=== PATIENT | female | born 1990 | race American Indian/Alaskan Native ===

== ENCOUNTER 2018-02-10 08:48 | Emergency (ER) | payer MEDICAID ==
[2018-02-10 09:16] VITALS: BP 120/74
--- NOTE | 2018-02-10 09:51 | Emergency Department Report ---
Blank Doc - Documentation Documentation: Patient is a 27-year-old [place] female who is presenting with vaginal bleeding. Patient states that she is approximately 2-1/2 months . Patient states that this morning she started having some vaginal bleeding that is heavier than spotting however it is less than large clots. Patient states that there is some crampy lower abdominal pain that is 3 out of 10 in severity. Patient denies any dysuria vaginal discharge nausea vomiting fever at this time. Patient has not had ultrasound or care thus far. Patient will have a beta Quant ultrasound and ABO Rh performed here in the emergency department.
--- NOTE | 2018-02-10 11:56 | Ultrasound Report ---
Pelvic and transvaginal sonography: History: with vaginal bleeding. Findings: Uterus measures 9.9 x 6.2 x 7 cm. Single intrauterine gestation is noted. CRL of the fetus is 13.3 mm corresponding to 9 weeks and 6 days of gestation. heart rate 166 per minute. Right ovary 3.4 x 1.8 x 3.3 cm. No mass. Left ovary not visualized. Impression: Single viable intrauterine gestation.
--- NOTE | 2018-02-10 12:28 | Emergency Department Report ---
ED HPI - General Chief complaint: Vaginal Bleeding Stated complaint: VAGINAL BLEEDING/ Time Seen by Provider: 02/10/18 09:40 Source: patient Mode of arrival: Ambulatory Limitations: No Limitations - Related Data Previous Rx's Medication Instructions Recorded Last Taken Type Amoxicillin [Amoxicillin TAB] 875 mg PO BID #14 tablet 12/30/15 Unknown Rx Fluticasone [Flonase] 1 spray NS QDAY #1 bottle 12/30/15 Unknown Rx predniSONE [Deltasone] 50 mg PO QDAY #5 tab 12/30/15 Unknown Rx Vit No.130/Iron/Folic 1 each PO QDAY #30 tablet 02/10/18 Unknown Rx [ Tablet] Allergies Allergy/AdvReac Type Severity Reaction Status Date / Time No Known Allergies Allergy Unverified 12/30/15 10:30 ED Review of Systems ROS: Stated complaint: VAGINAL BLEEDING/ Other details as noted in HPI ED Past Medical Hx - Past Medical History Previous Medical History?: No - Surgical History Past Surgical History?: No - Social History Smoking Status: Never Smoker Substance Use Type: None - Medications Home Medications: Home Medications Medication Instructions Recorded Confirmed Last Taken Type Amoxicillin [Amoxicillin TAB] 875 mg PO BID #14 tablet 12/30/15 Unknown Rx Fluticasone [Flonase] 1 spray NS QDAY #1 bottle 12/30/15 Unknown Rx predniSONE [Deltasone] 50 mg PO QDAY #5 tab 12/30/15 Unknown Rx Vit No.130/Iron/Folic 1 each PO QDAY #30 tablet 02/10/18 Unknown Rx [ Tablet] ED Physical Exam - General Limitations: No Limitations ED Course Vital Signs 02/10/18 09:11 Temperature 98.7 F Pulse Rate 88 Respiratory 16 Rate Blood Pressure 120/74 O2 Sat by Pulse 97 Oximetry ED Medical Decision Making - Medical Decision Making A/P: Vaginal bleeding during 1-intrauterine at approximately 9 weeks spelled this 2-Obgyn follow-up 3-Rh+ 4- Critical care attestation.: If time is entered above; I have spent that time in minutes in the direct care of this critically ill patient, excluding procedure time. ED Disposition Clinical Impression: Vaginal bleeding during Disposition: DC-01 TO HOME OR SELFCARE Is pt being admited?: No Does the pt Need Aspirin: No Condition: Stable Instructions: (ED), Threatened Miscarriage (ED) Prescriptions: Vit No.130/Iron/Folic [ Tablet] 1 each PO QDAY #30 tablet Referrals: [facility] [Provider Group] - 3-5 Days [facility] [Provider Group] - 3-5 Days [facility] [Provider Group] - 3-5 Days Forms: Accompanied Note, Work/School Release Form(ED) Time of Disposition: 12:34
== END 2018-02-10 12:47 | disposition home or self-care (01) ==
LOC: ED 08:48
DX: O46.91 Antepartum hemorrhage, unspecified, first trimester (principal); Z3A.09 9 weeks gestation of pregnancy
CPT/HCPCS: 36415; 76801; 76817; 84702; 86900; 86901

== ENCOUNTER 2020-11-21 00:50 | Emergency (ER) | payer BC, MEDICAID ==
[2020-11-21] MEDS ORDERED: medroxyPROGESTERone ACETATE 5 MG TAB PO SCH (01:52)
[2020-11-21 01:55] VITALS: BP 129/64
--- NOTE | 2020-11-21 02:00 | Emergency Department Report ---
ED Female HPI - General Stated complaint: MENSTRAL PERIOD-UN NORMAL - History of Present Illness Initial comments: Patient is a A0 30-year-old -[place]i female with a history of morbid obesity who presents to the ED with complaint of acute onset persistent heavy vaginal bleeding for the last 1 month. Patient states that she usually uses up to 4 pads daily because of heavy vaginal bleeding. Patient also complains of mild suprapubic cramps and generalized weakness for the last 1 week. Patient also states that she is not on any control and that she is not sexually active at this time. Patient denies dysuria, urinary frequency and urgency, vaginal discharge, dyspareunia, headache, syncope, lightheadedness, nausea and vomiting or diarrhea, dizziness, fever, chills, cough, sore throat or headache. MD Complaint: vaginal bleeding, other (Generalized weakness) -: Gradual, month(s) (1) Location: suprapubic, other (Vaginal) Radiation: non-radiating Severity: severe Severity scale (0 -10): 7 Quality: cramping, dull Consistency: constant Improves with: none Worsens with: urination Are you Now?: No Last Menstrual Period: 09/26/20 EDC: 07/03/21 Associated Symptoms: denies other symptoms, vaginal bleeding, abdominal pain (Suprapubic cramps). denies: vaginal discharge, nausea/vomiting, fever/chills, headaches, loss of appetite, dysuria, hematuria, rash, seizure, shortness of breath, syncope, weakness - Related Data Sexually active: No : 1 Para: 1 A: 0 Previous Rx's Medication Instructions Recorded Last Taken Type Amoxicillin [Amoxicillin TAB] 875 mg PO BID #14 tablet 12/30/15 Unknown Rx Fluticasone [Flonase] 1 spray NS QDAY #1 bottle 12/30/15 Unknown Rx predniSONE [Deltasone] 50 mg PO QDAY #5 tab 12/30/15 Unknown Rx Vit No.130/Iron/Folic 1 each PO QDAY #30 tablet 02/10/18 Unknown Rx [ Tablet] Ferrous Sulfate 325 mg PO BID #60 tablet. 09/18/18 Unknown Rx Ibuprofen [Motrin] 600 mg PO Q8H PRN #30 tablet 09/18/18 Unknown Rx labetaloL [Labetalol 200mg TAB] 200 mg PO BID 40 Days tablet 09/18/18 Unknown Rx oxyCODONE /ACETAMINOPHEN [Percocet 1 tab PO Q6HR PRN #30 tablet 09/18/18 Unknown Rx 5/325] medroxyPROGESTERone ACETATE 10 mg PO DAILY #14 tablet 11/21/20 Unknown Rx [Provera] Allergies Allergy/AdvReac Type Severity Reaction Status Date / Time No Known Allergies Allergy Verified 09/12/18 15:20 ED Review of Systems ROS: Stated complaint: MENSTRAL PERIOD-UN NORMAL Other details as noted in HPI Constitutional: denies: chills, fever Eyes: denies: eye pain, eye discharge, vision change ENT: denies: ear pain, throat pain Respiratory: denies: cough, shortness of breath, wheezing Cardiovascular: denies: chest pain, palpitations Endocrine: no symptoms reported Gastrointestinal: abdominal pain (Suprapubic cramps). denies: nausea, vomiting, diarrhea Genitourinary: abnormal menses (Heavy vaginal bleeding). denies: urgency, dysuria, frequency, hematuria, discharge Musculoskeletal: denies: back pain, joint swelling, arthralgia Skin: denies: rash, lesions Neurological: denies: headache, weakness, paresthesias Psychiatric: denies: anxiety, depression Hematological/Lymphatic: denies: easy bleeding, easy bruising ED Past Medical Hx - Past Medical History Hx Hypertension: No Hx Diabetes: No Hx Deep Vein Thrombosis: No Hx Renal Disease: No Hx Sickle Cell Disease: No Hx Seizures: No Hx Asthma: No Hx COPD: No Hx HIV: No - Social History Smoking Status: Never Smoker - Medications Home Medications: Home Medications Medication Instructions Recorded Confirmed Last Taken Type Amoxicillin [Amoxicillin TAB] 875 mg PO BID #14 tablet 12/30/15 Unknown Rx Fluticasone [Flonase] 1 spray NS QDAY #1 bottle 12/30/15 Unknown Rx predniSONE [Deltasone] 50 mg PO QDAY #5 tab 12/30/15 Unknown Rx Vit No.130/Iron/Folic 1 each PO QDAY #30 tablet 02/10/18 Unknown Rx [ Tablet] Ferrous Sulfate 325 mg PO BID #60 tablet. 09/18/18 Unknown Rx Ibuprofen [Motrin] 600 mg PO Q8H PRN #30 tablet 09/18/18 Unknown Rx labetaloL [Labetalol 200mg TAB] 200 mg PO BID 40 Days tablet 09/18/18 Unknown Rx oxyCODONE /ACETAMINOPHEN [Percocet 1 tab PO Q6HR PRN #30 tablet 09/18/18 Unknown Rx 5/325] medroxyPROGESTERone ACETATE 10 mg PO DAILY #14 tablet 11/21/20 Unknown Rx [Provera] ED Physical Exam - General General appearance: alert, in no apparent distress - Head Head exam: Present: atraumatic, normocephalic, normal inspection - Eye Eye exam: Present: normal appearance, PERRL, EOMI Pupils: Present: normal accommodation - ENT ENT exam: Present: normal exam, normal orophraynx, mucous membranes moist, TM's normal bilaterally, normal external ear exam - Neck Neck exam: Present: normal inspection, full ROM - Respiratory Respiratory exam: Present: normal lung sounds bilaterally. Absent: respiratory distress, wheezes, rales, rhonchi, chest wall tenderness, accessory muscle use - Cardiovascular Cardiovascular Exam: Present: regular rate, normal rhythm, normal heart sounds. Absent: systolic murmur, diastolic murmur, rubs, gallop - GI/Abdominal GI/Abdominal exam: Present: soft, normal bowel sounds. Absent: tenderness, guarding, rebound, hyperactive bowel sounds, hypoactive bowel sounds, organomegaly - Extremities Exam Extremities exam: Present: normal inspection, full ROM, normal capillary refill - Back Exam Back exam: Present: normal inspection, full ROM. Absent: tenderness, CVA tenderness (R), CVA tenderness (L), muscle spasm, paraspinal tenderness, vertebral tenderness - Neurological Exam Neurological exam: Present: alert, oriented X3, CN II-XII intact, normal gait, reflexes normal - Psychiatric Psychiatric exam: Present: normal affect, normal mood - Skin Skin exam: Present: warm, dry, intact, normal color. Absent: rash ED Course Vital Signs 11/21/20 01:49 Temperature 98.7 F Pulse Rate 76 Respiratory 16 Rate Blood Pressure 129/64 O2 Sat by Pulse 100 Oximetry ED Medical Decision Making - Lab Data Result diagrams: 11/21/20 01:55 11/21/20 01:55 - Medical Decision Making This is a A0 30-year-old -Israeli female with a history of morbid obesity who presents to the ED with complaint of acute onset persistent heavy vaginal bleeding for the last 1 month. Patient states that she usually uses up to 4 pads daily because of heavy vaginal bleeding. Patient also complains of mild suprapubic cramps and generalized weakness for the last 1 week. Patient also states that she is not on any control and that she is not sexually active at this time. In the ED, patient is alert and oriented x3 and is not in any distress. Lab test results were reviewed and are all nonactionable with an H&H of 10.4 and 32.4 and MCV of 80. The rest of the lab test results were nonactionable. Patient was treated in the ED with medroxyprogesterone 10 mg p.o. x1. Patient was therefore discharged home on prescription of medroxy progesterone tablets and advised to follow-up with [facility] physician controller repairer and tester Dr. Swenson for follow-up in 5 to 7 days. Patient was otherwise advised return to the ED immediately if symptoms get worse. - Differential Diagnosis ; ovarian cyst; uterine fibroids; UTI; kidney stones; cancer Critical care attestation.: If time is entered above; I have spent that time in minutes in the direct care of this critically ill patient, excluding procedure time. ED Disposition Clinical Impression: Dysfunctional uterine hemorrhage, Menometrorrhagia Disposition: DC- TO HOME OR SELFCARE Is pt being admited?: No Does the pt Need Aspirin: No Condition: Stable Instructions: Metrorrhagia, [id number], Abnormal Uterine Bleeding, [id number] Additional Instructions: All lab test results were reviewed and are all nonactionable. Therefore take medications as advised, drink plenty of fluids and follow-up with your [facility] physician as advised in 5 to 7 days. Return to the ED immediately if symptoms get worse. Prescriptions: medroxyPROGESTERone ACETATE [Provera] 10 mg PO DAILY #14 tablet Referrals: LEIGHTON SWENSON MD [Staff Physician] - 3-5 Days Forms: Work/School Release Form(ED) Time of Disposition: 04:29 Print Language: VIETNAMESE
[2020-11-21 02:14] LABS: Basophils % (Auto) 0.6 % (0.0-1.8); Eosinophils # (Auto) 0.1 K/mm3 (0.0-0.4); Eosinophils % (Auto) 1.5 % (0.0-4.3); Hematocrit 32.4 % (30.3-42.9); Hemoglobin 10.4 gm/dl (10.1-14.3); Lymphocytes # (Auto) 2.4 K/mm3 (1.2-5.4); Lymphocytes % (Auto) 46.3 % (13.4-35.0); Mean Corpuscular HGB Conc 32 % (30-34); Mean Corpuscular Volume 80 fl (79-97); Monocytes # (Auto) 0.3 K/mm3 (0.0-0.8); Monocytes % (Auto) 6.5 % (0.0-7.3); Platelet Count 342 K/mm3 (140-440); Red Blood Count 4.07 M/mm3 (3.65-5.03); Red Cell Distribution Width 14.9 % (13.2-15.2)
[2020-11-21 02:39] LABS: Alanine Aminotransferase 12 units/L (7-56); BUN/Creatinine Ratio 12; Blood Urea Nitrogen 13 mg/dL (7-17); Calcium 9.1 mg/dL (8.4-10.2); Hemolysis Index 6
[2020-11-21 04:13] LABS: Bilirubin,Urine NEG (Negative); Blood,Urine LG (Negative); Color,Urine Yellow (Yellow); Mucus,Urine 1+ /HPF
== END 2020-11-21 04:46 | disposition home or self-care (01) ==
LOC: ED 00:50
DX: N93.8 Other specified abnormal uterine and vaginal bleeding (principal); N92.1 Excessive and frequent menstruation with irregular cycle; Z79.1 Long term (current) use of non-steroidal anti-inflammatories (NSAID); Z79.2 Long term (current) use of antibiotics; Z79.899 Other long term (current) drug therapy
CPT/HCPCS: 36415; 80053; 81001; 84703; 85025